=== PATIENT | male | born 1940 | race Caucasian/White ===

== ENCOUNTER → 2017-10-12 10:59 | Outpatient (CLI) | payer MEDICARE, OTHER, SELFPAY ==
--- NOTE | 2017-10-12 | DI.CT.S_ITS ---
PROCEDURE: CT KIDNEY URETER BLADDER (KUB) INDICATIONS: GROSS HEMATURIA TECHNIQUE: Noncontrast 5 mm thick sections acquired from the diaphragms to the symphysis. 5 mm thick coronal and sagittal reformats were then performed. For radiation dose reduction, the following was used: automated exposure control, adjustment of mA and/or kV according to patient size. COMPARISON: [facility], CT, ABDOMEN/PELVIS WITH CONTRAST, 02/05/2015, 13:06. FINDINGS: Image quality: Excellent. Lung bases: 5 mm calcified granuloma is noted in lateral aspect of left lung base. Bibasilar dependent atelectasis is seen. Heart size is normal. Urinary system: Both kidneys are normal in size. No kidney stones. No hydronephrosis or perinephric fat stranding. 4.9 x 3.9 cm simple cyst in anterior cortex of upper pole left kidney is again seen. Both ureters appear non-dilated throughout their expected courses. There is diffuse urinary bladder wall thickening, no definite discrete bladder wall mass is seen. Enlarged prostate gland with mass effect on floor of urinary bladder is noted. Brachytherapy seeds are noted in the region of prostate gland. No calcified bladder stones. Other solid organs: Liver is normal in size. 2.4 x 2.7 cm hypodense area is seen involving posterior lateral periphery of right hepatic lobe posterior segment. Gallbladder is within normal limits. Pancreas is normal in contours. Spleen is normal in size. No adrenal nodules. Peritoneum and bowel: There is a small hiatal hernia. Unenhanced bowel loops demonstrate normal wall thickness and caliber. No free fluid or air. Herniated colon loops are noted within central herniation sac, no evidence of incarceration. Postsurgical changes are again noted in right lower quadrant and abdomen, consistent with prior hemicolectomy. Extensive sigmoid diverticulosis is seen, no significant evidence of acute diverticulitis. Nodes and vessels: No retroperitoneal or mesenteric adenopathy by size criteria. Aorta and inferior vena cava are normal in caliber. Abdominal wall: The there is ventral hernia just above the level of umbilicus with anterior abdominal wall defect measures 7.2 cm in width containing transverse colon loop. Pelvis: No free pelvic fluid. No inguinal hernias or adenopathy. Bones: No suspicious bony lesions. No vertebral body compression fractures. IMPRESSION: 1. No renal stone hydronephrosis. Simple cyst in upper pole left kidney. No perinephric fat stranding. 2. Enlarged prostate gland with mass effect of pleural effusion the bladder. Diffuse bladder wall thickening, no definite discrete bladder wall mass is seen. Findings could represent cystitis. 3. 2.4 x 2.7 cm hypodense area involving right hepatic lobe posterior segment, and evaluation is limited due to lack of contrast on the current study. Further evaluation with CT or MRI of abdomen without and with contrast can be done if indicated. 4. Prior hemicolectomy with post surgical changes in right side of abdomen. Moderate to large sized ventral hernia containing transverse colon loop, no evidence of incarceration. No bowel obstruction. No free fluid or free air. Dictated by: Baldemar Trevino MD. on 10/12/2017 at 12:06 Approved by: Baldemar Trevino M.D. on 10/12/2017 at 12:21
== END ==
PROVIDERS: PCP Internal Medicine; Visit Provider Urology
DX: R31.0 Gross hematuria (principal); N28.1 Cyst of kidney, acquired; N40.0 Benign prostatic hyperplasia without lower urinary tract symptoms; K43.9 Ventral hernia without obstruction or gangrene
CPT/HCPCS: 74176

== ENCOUNTER → 2019-11-11 09:48 | Outpatient (CLI) | payer MEDICARE, OTHER, SELFPAY ==
[2019-11-12 14:14] LABS: COVID19 Sendout Not Detected (Not Detect)
== END ==
PROVIDERS: PCP Internal Medicine; Visit Provider Physician Assistant
DX: Z11.59 Encounter for screening for other viral diseases (principal)
CPT/HCPCS: 87635

== ENCOUNTER 2019-11-16 18:25 | Emergency (ER) | payer MEDICARE, OTHER, SELFPAY ==
[2019-11-16 18:28] VITALS: BP 164/74; PULSE 89; RESP 16; TEMP 36.1; O2SAT 98; BMI 29.0
== END 2019-11-16 20:30 | disposition left against medical advice (07) ==
PROVIDERS: Emergency Provider Emergency Medicine; PCP Internal Medicine
DX: L02.31 Cutaneous abscess of buttock (principal)
CPT/HCPCS: 99281

== ENCOUNTER → 2019-11-28 13:22 | Outpatient (CLI) | payer MEDICARE, OTHER, SELFPAY | PROVIDERS: PCP Internal Medicine; Referring Provider Internal Medicine; Visit Provider Family Medicine | DX: S31.829A Unspecified open wound of left buttock, initial encounter (principal); T81.31XA Disruption of external operation (surgical) wound, not elsewhere classified, initial encounter | CPT/HCPCS: 11042; 87070; 87075; 87205; 99213; 99214 ==

== ENCOUNTER → 2019-12-06 09:22 | Outpatient (CLI) | payer MEDICARE, OTHER, SELFPAY | PROVIDERS: PCP Internal Medicine; Referring Provider Internal Medicine; Visit Provider Family Medicine | DX: S31.829A Unspecified open wound of left buttock, initial encounter (principal) | CPT/HCPCS: 11042; 87070; 87075; 87205 ==

== ENCOUNTER → 2019-12-12 11:27 | Outpatient (CLI) | payer MEDICARE, OTHER, SELFPAY | PROVIDERS: PCP Internal Medicine; Referring Provider Internal Medicine; Visit Provider Family Medicine | DX: T81.31XA Disruption of external operation (surgical) wound, not elsewhere classified, initial encounter (principal); S31.829A Unspecified open wound of left buttock, initial encounter | CPT/HCPCS: 99212 ==

== ENCOUNTER → 2019-12-20 14:22 | Outpatient (CLI) | payer MEDICARE, OTHER, SELFPAY | PROVIDERS: PCP Internal Medicine; Referring Provider Internal Medicine; Visit Provider Family Medicine | DX: S31.829A Unspecified open wound of left buttock, initial encounter (principal); T81.31XA Disruption of external operation (surgical) wound, not elsewhere classified, initial encounter | CPT/HCPCS: 11042 ==